=== PATIENT | male | born 1960 | race Two or more races ===

== ENCOUNTER 2019-11-17 08:11 | Outpatient (CLI) | payer OTHER ==
[~2019-11-17] VITALS: Ht 162.6 cm; Wt 89.8 kg
[2019-11-17] MEDS ORDERED: PRAVASTATIN SOD20 M1 ORAL (08:38)
[2019-11-17] MEDS ORDERED: DIOVAN HCT 3201 EAC1 ORAL (08:38)
--- NOTE | 2019-11-17 08:55 | Short Stay Surgery H&P ---
History of Present Illness History of Present Illness Chief Complaint Lower back pain HPI Jake Mckeon is a 59 year old male who was admitted on for Lumbar Spondylosis Patient History Allergies: Coded Allergies: No Known Allergies (Unverified , 11/17/19) PAST MEDICAL HISTORY: (1) Lumbosacral spondylosis with radiculopathy Patient History Narrative The patient has a date of loss of 12/12/2018 and has suffered from lumbar spinal pain with radiculopathy. He has failed conservative treatment including rest, heat, ice, physical therapy, massage, traction. He is here for therapeutic facet injections at the L5-S1 level bilaterally. Medication History Scheduled Pravastatin Sod* (Pravastatin Sod*), 20 MG ORAL BEDTIME, (Reported) Valsartan/Hydrochlorothiazide 320-25MG (Diovan Hct 320-25 Mg Tablet), 1 TAB ORAL DAILY, (Reported) Review of Systems Cardiovascular: Denies: no symptoms, see HPI, hypertension, CAD - stable, angina, [place], CABG, dysrhythmia, CHF, valvular disease, rheumatic heart disease, peripheral vascular disease, source of infx - skin, source of infx-indw cath, source of infx-prosthesis, other Respiratory: Denies: no symptoms, see HPI, asthma, chronic bronchitis, pneumonia, COPD, URI, tuberculosis, sleep apnea, CPAP, home 02, other Skeletal: Reports: spinal disc disease, trauma Gastrointestinal: Denies: no symptoms, see HPI, obesity, peptic ulcer disease, gastro esophageal reflux disease, hiatal hernia, jaundice, hepatitis A,B,C, other Genitourinary: Denies: no symptoms, see HPI, renal insufficiency, endstage renal disease, dialysis, UTI, urinary retention, BPH, other Neurologic: Denies: no symptoms, see HPI, seizure, stroke/TIA, neuropathy, neuro muscular disease, other Endocrine: Denies: no symptoms, see HPI, diabetes - type 1, diabetes - type 2, thyroid, post menopausal, other Hematologic: Denies: no symptoms, see HPI, anemia, coagulopathy, prior transfusion, other Physical Exam Vital Signs Last Vital Signs Date Time Temp Pulse Resp B/P (MAP) Pulse Ox O2 Delivery O2 Flow Rate FiO2 11/17/19 08:38 Room Air Skin: normal HENT: normal Heart: normal Lungs: normal Abdomen: normal Extremities: normal Genitourinary: normal Plan Plan of Care Bilateral L5-S1 intra-articular facet injections with PRP. Preop Interventions See HPI Summary of Findings Lumbar disc displacements and spondylosis of facet joints. Attestation Are the patient's medical conditions optimized for surgery? Attestation Response: yes Kathrine Hernandez MD Nov 17, 2019 08:55
--- NOTE | 2019-11-17 08:56 | Pre-Procedure Note/Attestation ---
Pre-Procedure Note/Attestation Complete Prior to Procedure Planned Procedure: bilateral Procedure Narrative: Bilateral L5-S1 intra-articular facet injections with platelet rich plasma. Indications for Procedure Pre-Operative Diagnosis: lumbosacral spondylosis with radiculopathy. Attestation I attest that I discussed the nature of the procedure; its benefits; risks and complications; and alternatives (and the risks and benefits of such alternatives ), prior to the procedure, with the patient (or the patient's legal dental sales representative). I attest that, if there was a reasonable possibility of needing a blood transfusion, the patient (or the patient's legal dental sales representative) was given the [place] [employer] standardized written summary, pursuant to the Edis Earnestine Blood Safety Act ([place] Health and Safety Code # 1645, as amended). I attest that I re-evaluated the patient just prior to the surgery and that there has been no change in the patient's H&P, except as documented below: Kathrine Hernandez MD Nov 17, 2019 08:56
[2019-11-17] MEDS ORDERED: Isovue-M 300 15ml INJ ONE (09:00)
[2019-11-17 09:02] VITALS: BP 120/77
--- NOTE | 2019-11-17 14:25 | Diagnostic Imaging Report ---
INDICATION: Pain, intraoperative TECHNIQUE: Intraoperative imaging Fluoroscopy time: 29.6 seconds Total dose: 0.42290 mGym2 Total number of images: 2 COMPARISON: None FINDINGS: Intraoperative images demonstrate contrast injection in the region of the bilateral L5-S1 facet joints. IMPRESSION: Intraoperative imaging, as described
--- NOTE | 2019-11-17 14:25 | Diagnostic Imaging Report ---
INDICATION: Pain, intraoperative TECHNIQUE: Intraoperative imaging Fluoroscopy time: 29.6 seconds Total dose: 0.63002 mGym2 Total number of images: 2 COMPARISON: None FINDINGS: Intraoperative images demonstrate contrast injection in the region of the bilateral L5-S1 facet joints. IMPRESSION: Intraoperative imaging, as described
--- NOTE | 2019-11-17 17:25 | Brief Operative Note ---
Immediate Post Operative Note Operative Note Chief Complaint: Lower back pain with radiation Pre-op Diagnosis: lumbosacral spondylosis with radiculopathy. Procedure: Bilateral L5-S1 intra-articular facet injections with platelet rich plasma. Post-op Diagnosis: Lumbosacral spondylosis with radiculopathy. Post-op Diagnosis: same as pre-op Findings: consistent w/pre-op dx studies Surgeon: Kathrine Hernandez MD Front Maker Lockstitch: none Additional Surgeons: none Anesthesiologist: none Anesthesia: local Specimen: none Complications: none Condition: stable Fluids: none Estimated Blood Loss: none Drains: none Packing: none Tourniquet time: 0 - min Implant(s) used?: No Kathrine Hernandez MD Nov 17, 2019 17:25
--- NOTE | 2019-11-17 17:28 | Discharge Summary ---
Discharge Summary Hospital Course Date of Admission 11/17/2019 Date of Discharge 11/17/2019 Admitting Diagnosis Lumbosacral spondylosis with radiculopathy. Reason for Hospitalization: short stay HPI Jake Mckeon is a 59 year old male who was admitted on for Lumbar Spondylosis Consultations none Procedures Bilateral L5-S1 intra-articular facet injections with PRP Hospital Course short stay Discharge Condition Upon Discharge: stable Discharge Disposition Patient was discharged to home. Discharge Diagnoses: (1) Lumbosacral spondylosis with radiculopathy Kathrine Hernandez MD Nov 17, 2019 17:28
--- NOTE | 2019-11-17 17:36 | Operative Note - PDOC ---
Operative Note Operative Note Date of Operation/Procedure: Nov 17, 2019 Chief Complaint: Lower back pain with radiation Pre-op Diagnosis: lumbosacral spondylosis with radiculopathy. Procedure: Bilateral L5-S1 intra-articular facet injections with platelet rich plasma. Post-op Diagnosis: Lumbosacral spondylosis with radiculopathy. Post-op Diagnosis: same as pre-op Operative Findings: consistent w/pre-op dx studies Surgeon: Kathrine Hernandez MD Process Validation Engineer: none Additional Surgeons: none Anesthesiologist: none Anesthesia: local Specimen: none Complications: none Condition: stable Fluids: none Estimated Blood Loss: none Drains: none Packing: none Tourniquet time: 0 - min Implant(s) used?: No Indications for Procedure The patient has a date of loss of 12/12/2018 and is complaining of chronic lower back pain with radiation into the legs. He has failed conservative treatment. He is here for his first therapeutic facet injections. Description of Procedure The patient was seen and identified in the preoperative area. Risks, benefits, complications, and alternatives were discussed with the patient. The patient agreed to proceed with the procedure and signed the consent. The preop nurse removed 10 mL of blood from the patient's AC under sterile conditions and placed it in the PRP tube. The tube was then placed in the centrifuge and spun for 10 minutes at 4000 rpm. The patient was then placed in the prone position, and lumbosacral area was prepped with Betadine x 3 and draped in the usual sterile fashion. Critical pause was taken. Using right oblique fluoroscopy, the right L5-S1 facet joint was identified, and skin and deeper tissues was anesthetized with 1% lidocaine. We used 22- gauge 5-inch spinal needles for the procedure. The needle was guided intra- articularly by fluoroscopy to the L5-S1 joint. Tip position was confirmed on lateral fluoroscopy. After negative aspiration of CSF and blood with no paresthesias, 0.5mL of Isoview M200 was injected illustrating excellent arthrogram. Again after negative aspiration of CSF and blood with no paresthesias, 1 mL of PRP was was injected into the joint. The needle was removed. The fluoroscopic camera was then placed in the left oblique position and the same procedure was repeated on the left side. The needles were removed, skin was cleansed, and bandages were applied. The patient tolerated the procedure well without complications, and was discharged from recovery room after meeting discharge. Follow up: The patient will follow up in four weeks. He was told to avoid NSAID, jacuzzi baths and icing the area. Kathrine Hernandez MD Nov 17, 2019 17:36
== END 2019-11-17 10:11 | disposition home or self-care (01) ==
LOC: RAD 08:11
DX: M47.817 Spondylosis without myelopathy or radiculopathy, lumbosacral region (principal)
CPT/HCPCS: 64483; 64484; 76000; Q9967